=== PATIENT | female | born 1985 | race Caucasian/White ===

== ENCOUNTER → 2016-06-15 | Outpatient (CLI) | payer BC | END | disposition short-term general hospital (02) | LOC: CLORTH 09:17 | DX: Z47.89 Encounter for other orthopedic aftercare (principal); M22.41 Chondromalacia patellae, right knee ==

== ENCOUNTER → 2016-07-13 | Outpatient (CLI) | payer BC | END | disposition short-term general hospital (02) | LOC: CLORTH 09:14 | DX: Z47.89 Encounter for other orthopedic aftercare (principal) ==